=== PATIENT | female | born 1985 ===

== ENCOUNTER 2019-01-09 10:05 | Emergency (ER) | payer BC ==
[~2019-01-09] VITALS: Ht 167.6 cm; Wt 81.6 kg
== END 2019-01-09 11:29 | disposition home or self-care (01) ==
LOC: ER 10:05
DX: S90.121A Contusion of right lesser toe(s) without damage to nail, initial encounter (principal); X58.XXXA Exposure to other specified factors, initial encounter; Y93.89 Activity, other specified; Y92.89 Other specified places as the place of occurrence of the external cause; Y99.8 Other external cause status